=== PATIENT | female | born 1970 ===

== ENCOUNTER 2023-05-22 06:16 | Day surgery (SDC) | payer OTHER ==
[~2023-05-22] VITALS: Ht 152.4 cm; Wt 71.7 kg
[~2023-05-22 06:16] MED LIST: LIPITOR20 MG PO; SINGULAIR5 MG PO; VITA-C120 GM PO; ZYRTEC10 MG PO
== END 2023-05-22 14:45 | disposition home or self-care (01) ==
LOC: CIR.AMB 06:16 → ADM 07:00 → CIR.AMB 09:30
PROVIDERS: ATTEND Specialist
DX: D24.2 Benign neoplasm of left breast (principal); N60.92 Unspecified benign mammary dysplasia of left breast; Z20.822 Contact with and (suspected) exposure to COVID-19; E78.5 Hyperlipidemia, unspecified; R92.0 Mammographic microcalcification found on diagnostic imaging of breast
CPT/HCPCS: 19301; 19281; L8699